=== PATIENT | male | born 1975 | race Caucasian/White ===

== ENCOUNTER 2016-06-17 16:29 | Day surgery (SDC) | payer BC, OTHER ==
[2016-06-17] MEDS ORDERED: KETOROLAC TROMETHAMINE INJ/PF 30 MG/1 ML SDV IV ONE (16:53)
[2016-06-17] MEDS ORDERED: NORMAL SALINE 1000 ML 1,000 ML IV ONE (16:53)
[2016-06-17] MEDS ORDERED: CIPROFLOXACIN 400 MG/D5W RTU 200 ML IV ONE (16:54)
[2016-06-17] MEDS ORDERED: MORPHINE SULFATE 10 MG/ML INJ IV ONE (16:54)
[2016-06-17] MEDS ORDERED: ONDANSETRON HCL INJ/PF 4 MG/2 ML SDV IV ONE (16:54)
--- NOTE | 2016-06-17 19:11 | ER Document Report ---
ED Skin Rash/Insect Bite/Abscs - General Chief Complaint: Abscess Stated Complaint: SKIN PROBLEM Mode of Arrival: Ambulatory Information source: Patient Notes: 41-year-old male presents to the emergency department complaining of painful swollen area to coccyx/left buttocks. Patient reports over the last weeks has had progressively worsening tenderness and pain to area. Denies drainage, trauma or obvious injury, fever, or blood in stool. Reports was evaluated by PCP at the [facility] today and referred to the emergency department for further evaluation. TRAVEL OUTSIDE OF THE [place] IN LAST 30 DAYS: No - HPI Patient complains to provider of: Tender/swollen area Onset/Duration: Persistent, Worse Quality of pain: Achy Severity: Moderate Pain Level: 4 Skin Character: Abscess, Erythema, Tenderness Skin Temperature: Warm Quality of rash: Painful Similar symptoms previously: No Recently seen / treated by doctor: Yes - Related Data Allergies/Adverse Reactions: No Known Allergies Allergy (Verified 12/06/11 12:17) Past Medical History - General Information source: Patient - Social History Smoking Status: Never Smoker Chew tobacco use (# tins/day): No Frequency of alcohol use: None Drug Abuse: None Lives with: Family Family History: Reviewed & Not Pertinent - Medical History Medical History: Negative - Past Medical History Cardiac Medical History: Denies: Hx Coronary Artery Disease, Hx Heart Attack, Hx Hypertension Pulmonary Medical History: Denies: Hx Asthma, Hx Bronchitis, Hx COPD, Hx Pneumonia Neurological Medical History: Denies: Hx Cerebrovascular Accident, Hx Seizures Renal/ Medical History: Denies: Hx Peritoneal Dialysis Musculoskeltal Medical History: Denies Hx Arthritis Past Surgical History: Reports: Hx Appendectomy - Immunizations Hx Diphtheria, Pertussis, Tetanus Vaccination: Yes - unknown Review of Systems - Review of Systems Constitutional: No symptoms reported EENT: No symptoms reported Cardiovascular: No symptoms reported Respiratory: No symptoms reported Gastrointestinal: No symptoms reported Genitourinary: No symptoms reported Male Genitourinary: No symptoms reported Musculoskeletal: No symptoms reported Skin: See HPI Hematologic/Lymphatic: No symptoms reported Neurological/Psychological: No symptoms reported -: Yes All other systems reviewed and negative Physical Exam - Vital signs Vitals: Temp Pulse Resp BP Pulse Ox 98.3 F 78 18 132/89 H 98 06/17/16 16:32 06/17/16 16:32 06/17/16 16:32 06/17/16 16:32 06/17/16 16:32 - General General appearance: Appears well, Alert In distress: None - HEENT Head: Normocephalic, Atraumatic Eyes: Normal Pupils: PERRL - Respiratory Respiratory status: No respiratory distress Chest status: Nontender Breath sounds: Normal Chest palpation: Normal - Cardiovascular Rhythm: Regular Heart sounds: Normal auscultation Murmur: No Pulses: Normal: Radial Normal capillary refill: Yes - Abdominal Inspection: Normal Distension: No distension Bowel sounds: Normal Tenderness: Nontender Organomegaly: No organomegaly - Back Back: Normal, Nontender. No: CVA tenderness, Vertebra tenderness - Neurological Neuro grossly intact: Yes Cognition: Normal Orientation: AAOx4 Sutter Coma Scale Eye Opening: Spontaneous Sutter Coma Scale Verbal: Oriented Jasmina Coma Scale Motor: Obeys Commands Sutter Coma Scale Total: 15 Speech: Normal Motor strength normal: LUE, RUE, LLE, RLE Sensory: Normal - Skin Skin Temperature: Warm Skin Moisture: Dry Skin Color: Normal Skin irregularity: Abscess - Patient has tenderness, swelling, erythema, and induration to pilonidal area that appears to extend to mid medial left buttocks. Does not appear to involve the rectum. No drainage. Course - Re-evaluation Re-evalutation: 06/17/16 16:50 Patient hemodynamically stable, in no distress, afebrile, nontoxic. Patient presentation and has a couple exam findings were discussed with surgeon Dr. Freedman who recommends starting patient on intravenous dose of Cipro pending his evaluation. 06/17/16 18:50 Patient remains hemodynamically stable and in no distress. Pain improved after medication. Patient was evaluated by surgeon who will assume care and take patient to OR at this time. - Vital Signs Vital signs: Temp Pulse Resp BP Pulse Ox 98.6 F 70 16 117/74 98 06/17/16 19:16 06/17/16 19:16 06/17/16 19:16 06/17/16 19:16 06/17/16 19:16 Discharge - Discharge Clinical Impression: Pilonidal abscess Condition: Stable Disposition: HOME, SELF-CARE Admitting Provider: Surgicalist Tyler Freedman Unit Admitted: OR
[2016-06-17] MEDS ORDERED: FENTANYL CITRATE INJ/PF 100 MCG/2 ML AMPUL ONE (19:30)
[2016-06-17] MEDS ORDERED: HYDROMORPHONE HCL INJ/PF 2 MG/ML AMPULE ONE (19:30)
[2016-06-17] MEDS ORDERED: MIDAZOLAM 2 MG/2 ML INJ ONE (19:30)
[2016-06-17] MEDS ORDERED: BUPIVACAINE HCL 0.25 % INJ/PF (2.5 MG/1 ML) 30 ML VIAL ONE (19:31)
[2016-06-17] MEDS ORDERED: LIDOCAINE 1% INJ-PF (10 MG/ML) 30 ML SDV ONE (19:31)
[2016-06-17] MEDS ORDERED: PROPOFOL INJ 200 MG/20 ML VIAL IV ONE (19:31)
--- NOTE | 2016-06-17 19:48 | HISTORY AND PHYSICAL E ---
History and Physical NAME: MANOLO DANGELO : 1975 AGE: 41Y ADMITTED: 06/17/2016 ROOM: CHIEF COMPLAINT: Pain in the *------* area posteriorly. HISTORY OF PRESENT ILLNESS: This is a 41-year-old male who has been complaining of discomfort along the area of the coccyx for the past 2 weeks. It got worse in the past 2 days and could barely walk because of the pain. He denies any fever, nausea, vomiting, or dysuria. No cough, chest pain. No visual problems or hearing problems. Complaining of severe pain in the pilonidal area to the point that he could barely sit or walk. REVIEW OF SYSTEMS: The rest of the systems unremarkable. ALLERGIES: None known. SOCIAL HISTORY: Denies smoking. Drinks rarely. No drug use. FAMILY HISTORY: Unremarkable. PHYSICAL EXAMINATION: GENERAL: A well-developed, well-nourished, 41-year-old male alert and oriented complaining of severe pilonidal area pain. HEENT: Neck is supple. No thyromegaly. LUNGS: Clear. HEART: Regular sinus rhythm. ABDOMEN: Soft, nontender. EXTREMITIES: No edema. POSTERIOR: On the posterior side, there is induration along both areas of the buttocks and also erythema that is markedly tender. There is an area of pilonidal sinus site that is quite dry at this time but markedly tender. IMPRESSION: Pilonidal abscess. PLAN: Patient started on IV antibiotics. He will go to the OR for incision and drainage of the pilonidal abscess. DICTATING PHYSICIAN: SARIKA LEWIS M.D. [id number] PHY#: [id number] ID: [id number] JOB#: [id number] ACCT: [id number] cc: >
[2016-06-17] MEDS ORDERED: FENTANYL CITRATE INJ/PF 100 MCG/2 ML AMPUL IV PRN ×3 (20:10)
[2016-06-17] MEDS ORDERED: MEPERIDINE HCL/PF INJ 25 MG/1 ML DISP.SYRIN IV PRN (20:10)
[2016-06-17] MEDS ORDERED: ONDANSETRON HCL INJ/PF 4 MG/2 ML SDV IV PRN (20:10)
[2016-06-17] MEDS ORDERED: DIPHENHYDRAMINE HCL 50 MG/ML VIAL IV PRN (20:10)
[2016-06-17] MEDS ORDERED: CIPROFLOXACIN 400 MG/D5W RTU 400 MG/200 ML RTUPB IV ONE (21:06)
[2016-06-17] MEDS ORDERED: HYDROMORPHONE HCL INJ/PF 2 MG/ML AMPULE IV PRN (21:46)
[2016-06-17] MEDS ORDERED: OXYCODONE-ACETAMINOPHEN 5-325 MG TABLET PO PRN (22:00)
--- NOTE | 2016-06-17 22:53 | OPERATIVE REPORT E ---
Operative Report NAME: MANOLO DANGELO : 1975 AGE: 41Y DATE OF SURGERY: 06/17/2016 ROOM: 404 PREOPERATIVE DIAGNOSIS: Pilonidal abscess. POSTOPERATIVE DIAGNOSIS: Pilonidal abscess. PROCEDURE PERFORMED: Incision and drainage of pilonidal abscess, pulse irrigation and packing. SURGEON: SARIKA LEWIS M.D. ANESTHESIA: Local MAC. INDICATION OF PROCEDURE: This is a 41-year-old male who has had pains in the pilonidal area for the past 2 weeks, and has gotten worse in the past 2 days, to the point where he could barely walk because of the pains. DESCRIPTION OF PROCEDURE: Patient was placed in a jackknife position, and after adequate IV sedation, the pilonidal area on the coccygeal site was then prepped and draped in the usual sterile fashion. Local anesthesia was injected using a mix of Xylocaine and Marcaine around the most tender site around the pilonidal area. A longitudinal incision was then made about 5 cm. There hair, about half of that was removed from the abscess cavity site. Next, hemostasis was obtained with cautery. The cavity site appears to be about 3 to 3 cm deep, and its about 5 cm long. The area was subsequently pulsed irrigated with 3 L of saline. It was relatively clean after irrigation. Further hemostasis obtained with electrocautery. Next, the area was subsequently packed with quarter-inch Iodoform gauze. The whole bottle amount of Iodoform gauze was used for the cavity packing. Next, sterile dressing was placed over the operative site. Patient tolerated the procedure well and brought to PACU in satisfactory condition. DICTATING PHYSICIAN: SARIKA LEWIS M.D. [id number] PHY#: [id number] ID: [id number] JOB#: [id number] ACCT: [id number] cc:SARIKA LEWIS M.D. >
[2016-06-18 00:04] VITALS: BP 149/70
--- NOTE | 2016-06-29 16:04 | DISCHARGE SUMMARY E ---
Discharge Summary NAME: MANOLO DANGELO : 1975 AGE: 41Y ADMITTED: 06/17/2016 DISCHARGED: 06/18/2016 FINAL DIAGNOSIS: Pilonidal abscess. PROCEDURE DONE: Incision and drainage of pilonidal abscess on 06/17/2016. SUMMARY: This is a 41-year-old male with pain in the pilonidal area for the past week and got worse in the last 48 hours. An incision and drainage of pilonidal abscess with removal of some gobs of hair was done on 06/17/2016. 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 The area was then packed with Iodoform gauze. Patient was then discharged later that day on 06/17/2016 on p.o. Cipro. The next day, I was called by the lab that culture was positive for MRSA, sensitive to Bactrim. Patient was called and his pharmacy also called and a prescription for Bactrim was ordered. Patient to be followed up in the surgical clinic in about 2 days. DIET: Regular. ACTIVITY: No lifting more than 10 pounds for the next 2 weeks and then may resume regular activity. He is also advised to use sitz baths after removal of the packing in about 48 hours. MEDICATION: Prescription for Percocet was given p.r.n. for pain. DICTATING PHYSICIAN: SARIKA LEWIS M.D. [id number] PHY#: [id number] ID: [id number] JOB#: [id number] ACCT: [id number] cc:ASRIKA LEWIS M.D., TIMOTHY M.D. >
== END 2016-06-18 00:08 | disposition home or self-care (01) ==
LOC: ER 16:29 → EH 19:28 → UNDOADMIN 19:28 → OROUT 19:28 → EH 21:30 → 4N 21:30 → OROUT 06-18 00:08 → UNDODISIN 06-18 00:08
PROVIDERS: ATTEND Surgery
PROC: 0H98XZZ Drainage of Buttock Skin, External Approach (ICD-10-PCS; principal; 2016-06-17 20:00)
DX: L05.01 Pilonidal cyst with abscess (principal)
CPT/HCPCS: 10080; 99284; 96375; 96365; 87070; 87205; 87075; 87077; 87186; J2250; J3010; J3490; J1885; J2270; J1170; J2405; J7030; J2704; J0744; 300